=== PATIENT | female | born 1975 | race Caucasian/White ===

== ENCOUNTER 2019-02-28 21:52 | Emergency (ER) | payer SELFPAY ==
[2019-02-28 22:10] VITALS: BP 140/90; TEMP 97.7; O2SAT 97
[2019-02-28] MEDS ORDERED: LIDOCAINE 1% 10 ML VIAL INJ ONE (22:16)
--- NOTE | 2019-02-28 22:24 | ED.PDOC ---
History of Present Illness - General Chief Complaint: Bite: Animal/Insect/Human Stated Complaint: bug in right ear Time Seen by Provider: 02/28/19 22:22 Source: patient, RN notes reviewed, Vital Signs reviewed Exam Limitations: no limitations - History of Present Illness Timing/Duration: 1/2 hour Severity: moderate Improving Factors: nothing Worsening Factors: nothing Associated Symptoms: denies symptoms Review of Systems - Review of Systems Constitutional: States: no symptoms reported EENTM: States: ear pain Respiratory: States: no symptoms reported Cardiology: States: no symptoms reported Gastrointestinal/Abdominal: States: no symptoms reported Genitourinary: States: no symptoms reported Musculoskeletal: States: no symptoms reported Skin: States: no symptoms reported Neurological: States: no symptoms reported Endocrine: States: no symptoms reported Hematologic/Lymphatic: States: no symptoms reported Physical Exam - Physical Exam General Appearance: Anxious Ears, Nose, Throat: other - 1-2 cm beetle in patient's right ear canal Neck: full range of motion Respiratory: no respiratory distress Cardiovascular/Chest: regular rate, rhythm Gastrointestinal/Abdominal: soft 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 On repeat right ear exam, there is erythema to canal, no perforation. Patient says she will see PCP for repeat ear exam tomorrow. Departure - Departure Clinical Impression: Foreign body of ear, right Time of Disposition: 22:24 Disposition: Discharge to Home or Self Care Condition: Excellent Departure Forms: ED Discharge - Pt. Copy, Patient Portal Self Enrollment Diet: resume usual diet Activity: ambulate only with walker Referrals: Ayanna Chavez MD [Primary Care Provider] - 1-2 Days
== END 2019-02-28 22:27 | disposition home or self-care (01) ==
LOC: ER 21:52
DX: T16.1XXA Foreign body in right ear, initial encounter (principal); Y99.0 Civilian activity done for income or pay; Y92.69 Other specified industrial and construction area as the place of occurrence of the external cause

== ENCOUNTER 2019-11-28 16:19 | Emergency (ER) | payer SELFPAY ==
--- NOTE | 2019-11-28 17:13 | RAD ---
EXAM: XR Right Hand Complete, 3 or More Views CLINICAL HISTORY: The patient is 44 years old and is Female; PAIN AFTER FALL TECHNIQUE: Three views of the right hand. COMPARISON: No relevant prior studies available. FINDINGS: Bones/joints: Oblique fracture at the base of the second proximal phalanx. No dislocation. Soft tissues: Unremarkable. No radiopaque foreign body. IMPRESSION: Oblique fracture at the base of the second proximal phalanx. Electronically signed by: Emily Saab MD 11/28/2019 5:11 PM CDT
--- NOTE | 2019-11-28 18:07 | ED.PDOC ---
History of Present Illness - General Chief Complaint: Upper Extremity Injury Stated Complaint: right hand pain after fall and from previous injur Time Seen by Provider: 11/28/19 17:28 Source: patient Additional Information: 44yo F presents with finger/hand pain s/p fall. The patient reports a mechanical fall which she braced herself with her right hand. Subsequently, she notes pain at the base of her R index finger. She denies wrist pain. She reports normal sensation. No other reported issues. - History of Present Illness Worsening Factors: movement Allergies/Adverse Reactions: Allergies NO KNOWN ALLERGY Allergy (Verified 11/28/19 16:39) Review of Systems - Review of Systems Constitutional: Denies: chills, fever EENTM: States: no symptoms reported Respiratory: Denies: cough, short of breath Cardiology: Denies: chest pain, palpitations Gastrointestinal/Abdominal: States: no symptoms reported Musculoskeletal: States: joint pain, joint swelling. Denies: neck pain Skin: Denies: change in color, lesions Neurological: Denies: numbness, weakness Past Medical History (General) - Patient Medical History Hx Seizures: No Hx Stroke: No Hx Dementia: No Hx Asthma: No Hx of COPD: No Hx Cardiac Disorders: No Hx Congestive Heart Failure: No Hx Pacemaker: No Hx Hypertension: Yes Hx Thyroid Disease: No Hx Diabetes: No Hx Gastroesophageal Reflux: No Hx Renal Disease: No Hx Cancer: No Hx of HIV: No Hx Hepatitis C: No Hx MRSA: No Surgical History: no surgical history - Vaccination History Hx Tetanus, Diphtheria Vaccination: Yes Hx Influenza Vaccination: No Hx Pneumococcal Vaccination: No Immunizations Up to Date: No - Social History Hx Tobacco Use: Yes Hx Chewing Tobacco Use: No Hx Alcohol Use: Yes Hx Substance Use: No Hx Substance Use Treatment: No Hx Depression: Yes Feels Threatened In Home Enviroment: No Feels Threatened In a Relationship: No Hx Physical Abuse: No Hx Emotional Abuse: No Hx Suspected Abuse: No - Female History Patient is a Female of Child Bearing Age (10 -59 yrs old): No Patient : No Family Medical History - Family History Mother Family History: Unknown Physical Exam - Physical Exam General Appearance: Alert, No apparent distress Neck: non-tender, full range of motion, supple Cardiovascular/Respiratory: regular rate, rhythm, normal peripheral pulses Abdominal Exam: non-tender, no hernia Back Exam: normal inspection, no vertebral tenderness Shoulder Exam: non-tender, no evidence of injury Elbow/Forearm Exam: non-tender, no evidence of injury Wrist Exam: non-tender, no evidence of injury, normal ROM Hand Exam: bone tenderness - Base of 2nd finger at MCP. No deformity. P reserved flexion and extesion with pain. NV intact., swelling Neuro/Tendon: normal sensation, normal motor functions Mental Status: alert, oriented x 3 Skin Exam: normal color, warm/dry Progress - Progress Progress: DDX: Fracture, sprain, strain, contusion Airborne+ PPE used. Quiñonez Shayla, #[id number] 11/28/19 18:[address] Rutherford. Recommends volar splint with MCP in 90 degrees flexion and outpatient follow up. 11/28/19 18:10 Results and diagnosis discussed with patient. She is N/V intact s/p splint placement. Return warnings provided. Pt understands follow up instructions. It was a pleasure to care for this patient today. 11/28/19 18:16 - EKG/XRAY/CT XRAY: hand - Oblique fx at base of 2nd prox phalanx. See formal read. Departure - Departure Clinical Impression: Proximal phalanx fracture of finger Qualifiers: Encounter type: initial encounter Finger: index finger Fracture type: closed Fracture alignment: nondisplaced Laterality: right Qualified Code(s): S62.640A - Nondisplaced fracture of proximal phalanx of right index finger, initial encounter for closed fracture Time of Disposition: 18:06 Disposition: Discharge to Home or Self Care Condition: Good Departure Forms: ED Discharge - Pt. Copy, Patient Portal Self Enrollment Instructions: DI for Finger Fracture
[2019-11-28 19:15] VITALS: BP 154/87; TEMP 97.4; O2SAT 95
== END 2019-11-28 19:16 | disposition home or self-care (01) ==
LOC: ER 16:19
DX: S62.640A Nondisplaced fracture of proximal phalanx of right index finger, initial encounter for closed fracture (principal); I10 Essential (primary) hypertension; F17.200 Nicotine dependence, unspecified, uncomplicated; W19.XXXA Unspecified fall, initial encounter; Y92.9 Unspecified place or not applicable

== ENCOUNTER → 2019-12-17 | Outpatient (CLI) | payer OTHER ==
--- NOTE | 2019-12-17 08:51 | RAD ---
EXAM DESCRIPTION: Hand,Right 3 Views CLINICAL HISTORY: 44 years Female, PAIN COMPARISON: November 28, 2019 FINDINGS: Three views of the right hand again show a small minimally displaced fracture involving the base of the proximal phalanx of the right index finger with extension to the second MTP joint surface. No new fracture or malalignment. No radiopaque foreign body or soft tissue gas. IMPRESSION: Minimally displaced, nonunited fracture involving the base of the proximal phalanx of the right index finger, unchanged from November 28, 2019. Electronically signed by: Timothy Rodriguez MD 12/17/2019 8:49 AM CDT
== END ==
LOC: RAD 07:58
PROVIDERS: ATTEND Orthopaedic Surgery
DX: S62.610 Displaced fracture of proximal phalanx of right index finger (principal)

== ENCOUNTER → 2020-01-06 | Outpatient (CLI) | payer SELFPAY ==
--- NOTE | 2020-01-06 11:37 | RAD ---
EXAM DESCRIPTION: Fingers,Right CLINICAL HISTORY: FRACTURE 0F PROXIMAL PHALANX OF FINGER RIGHT INDEX FINGER COMPARISON: 17 December 2019 TECHNIQUE: 3 views of the second digit of the right hand FINDINGS: The examination again reveals a fracture of the ulnar side of the proximal aspect of the proximal phalanx of the second digit. No significant callus formation is observed. Alignment is not significantly changed from the previous exam. IMPRESSION: A persistent nonunited fracture of the ulnar side of the proximal aspect of the proximal phalanx of the second digit of the right hand is again demonstrated Electronically signed by: Vahe Gong MD 01/06/2020 11:35 AM CDT
== END ==
LOC: RAD 08:01
PROVIDERS: ATTEND Orthopaedic Surgery
DX: S62.610 Displaced fracture of proximal phalanx of right index finger (principal)

== ENCOUNTER 2020-03-03 16:54 | Emergency (ER) | payer SELFPAY ==
[2020-03-03 17:14] VITALS: TEMP 98.1
--- NOTE | 2020-03-03 17:27 | RAD ---
EXAM: Tibia/Fibula,Left CLINICAL INDICATION: Left leg pain COMPARISON: There is no previous study for comparison. FINDINGS: 2 views of the left tibia/fibula reveal no evidence of any fracture. The osseous structures appear intact and unremarkable. There are no radiopaque foreign bodies. IMPRESSION: Negative left tibia/fibula radiographs. Electronically signed by: Victor Manuel Lowry MD 03/03/2020 5:26 PM CDT
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
[2020-03-03 17:47] VITALS: BP 128/89; O2SAT 98
== END 2020-03-03 17:46 | disposition home or self-care (01) ==
LOC: ER 16:54
DX: S80.12XA Contusion of left lower leg, initial encounter (principal); I11.0 Hypertensive heart disease with heart failure; I50.9 Heart failure, unspecified; F32.9 Major depressive disorder, single episode, unspecified; Y92.9 Unspecified place or not applicable; Z79.82 Long term (current) use of aspirin; Z79.899 Other long term (current) drug therapy; W22.09XA Striking against other stationary object, initial encounter; Z87.891 Personal history of nicotine dependence

== ENCOUNTER 2020-03-09 04:47 | Emergency (ER) | payer SELFPAY ==
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
[2020-03-09] MEDS ORDERED: MORPHINE SULFATE INJ 10 MG/ML VIAL IM ONE (05:09)
[2020-03-09 05:10] VITALS: TEMP 97.6
[2020-03-09] MEDS ORDERED: HYDROCOD/APAP 5/325 (ER DISP) #3 TAB PO ONE (05:13)
[2020-03-09] MEDS ORDERED: CLINDAMYCIN HCL CAP 150 MG CAP PO ONE (05:17)
[2020-03-09] MEDS ORDERED: KETOROLAC TROMETHAMINE INJ 30 MG/ML VIAL IM ONE (05:21)
[2020-03-09 05:59] VITALS: O2SAT 99
[2020-03-09 06:00] VITALS: BP 156/95
== END 2020-03-09 06:03 | disposition home or self-care (01) ==
LOC: ER 04:47
DX: L03.116 Cellulitis of left lower limb (principal); S80.12XD Contusion of left lower leg, subsequent encounter; F32.9 Major depressive disorder, single episode, unspecified; I50.9 Heart failure, unspecified; I11.0 Hypertensive heart disease with heart failure; W22.09XD Striking against other stationary object, subsequent encounter; Z79.82 Long term (current) use of aspirin; Z87.891 Personal history of nicotine dependence; Z79.899 Other long term (current) drug therapy; Y92.9 Unspecified place or not applicable
CPT/HCPCS: J1885; J2270

== ENCOUNTER → 2020-03-25 | Outpatient (CLI) | payer SELFPAY ==
--- NOTE | 2020-03-25 12:33 | US ---
EXAM DESCRIPTION: Venous,Lower Extremity LT: ULTRASOUND. CLINICAL HISTORY: Acute embolism and thrombosis COMPARISON: None Available. TECHNIQUE: Solitario-scale and doppler sonographic evaluation of the deep venous system of the left lower extremity. FINDINGS: Doppler evaluation shows normal color flow and normal phasicity and augmentation of the left common femoral vein, tab femoral vein, popliteal vein, left greater saphenous vein, junction with the CFV. Also normal color flow and normal phasicity and augmentation of the peroneal, and posterior tibial vein. The left lower extremity deep veins were completely compressible; normal occlusion with transducer pressure. Solitario-scale survey showed no echogenic thrombus within these veins. In the medial left proximal calf is a palpable mass. This corresponds to a heterogeneous fluid collection in the subcutaneous tissues measuring 4.2 x 2.1 x 2.6 cm. Irregular cortez are not thickened. No color Doppler flow. IMPRESSION: 1. Duplex ultrasound evaluation of the left lower extremity deep venous system showing no evidence of thrombosis. 2. Left medial calf 4.2 cm Paul's cyst. Electronically signed by: Blanco Hernandez MD 03/25/2020 12:31 PM CDT
== END ==
LOC: RAD 11:45
PROVIDERS: ATTEND Family Medicine
DX: I82.402 Acute embolism and thrombosis of unspecified deep veins of left lower extremity (principal); M71.22 Synovial cyst of popliteal space [Baker], left knee